=== PATIENT | female | born 1980 | race Caucasian/White ===

== ENCOUNTER 2021-08-26 11:31 | Emergency (ER) | payer MEDICAID ==
[~2021-08-26] VITALS: Ht 160 cm; Wt 74.0 kg
[~2021-08-26 11:31] MED LIST: ASP81CT PO; OXYC-12 PO
--- NOTE | 2021-08-26 11:58 | ED Lower Extremity ---
General Chief Complaint: Lower Extremity Stated Complaint: L LEG SWOLLEN Source: patient Exam Limitations: no limitations History of Present Illness Date Seen by Provider: Aug 26, 2021 Time Seen by Provider: 11:54 Initial Comments To ER with left leg swelling. She states this began after she injured it by twisting it in the groin about 2 weeks ago. She then had some redness in her lower extremity thought to be cellulitis so she was started on Bactrim. She had an ultrasound today showing extensive DVT in the left lower extremity. This was done outpatient at the [facility] in [place]. They are faxing that report to us currently. She does smoke cigarettes. She is not on any oral estrogens. No history of DVT. No recent surgery or prolonged immobilization. Denies any chest pain or shortness of breath. She states that she does feel anxious because she was told she would have to be admitted to the hospital for a couple of days for this. Onset: just prior to arrival Severity: moderate Pain/Injury Location: right leg Method of Injury: unknown Modifying Factors: Worse With Movement Allergies and Home Medications Allergies Coded Allergies: No Known Drug Allergies (Unverified , 12/30/12) Patient Home Medication List Home Medication List Reviewed: Yes Apixaban (Eliquis) 5 Mg Tablet, 5 MG PO BID Prescribed by: LOUISA KHANNA on 08/26/21 1251 Hydrocodone/Acetaminophen (Hydrocodone-Acetamin 5-325 mg) 1 Each Tablet, 1 TAB PO Q4H PRN for PAIN-MODERATE (5-7) Prescribed by: LOUISA KHANNA on 08/26/21 1251 Oxycodone Hcl/Acetaminophen (Percocet 5-325 Mg Tablet) 1 Each Tablet, 1-2 EACH PO Q4H PRN, (Reported) Entered as Reported by: DONTRELL QIU on 12/30/12 1153 Review of Systems Constitutional: see HPI; No chills, No fever EENTM: see HPI Respiratory: see HPI; No cough, No dyspnea on exertion, No short of breath Cardiovascular: see HPI; No chest pain Genitourinary: no symptoms reported Musculoskeletal: no symptoms reported Skin: no symptoms reported Psychiatric/Neurological: No Symptoms Reported Past Begwsky-Qvqcll-Oczafw Hx Patient Social History Tobacco Use?: Yes Tobacco type used: Cigarettes Smoking Status: Current Everyday Smoker Use of E-Cig and/or Vaping dev: No Substance use?: Yes Substance type: Marijuana Alcohol Use?: No Immunizations Up To Date Tetanus Booster (TDap): Less than 5yrs Influenza Vaccine Up-to-Date: Yes; Up-to-Date First/Initial COVID19 Vaccinat: NONE Second COVID19 Vaccination Kei: NONE Third COVID19 Vaccination Date: NONE COVID19 Vaccine Cardiopulmonary Specialist: NONE Past Medical History Surgery/Hospitalization HX: SX: T&A, PARTIAL HYSTERECTOMY, BACK SX, RIGHT SHOULDER SX Asthma Reproductive Disorders: Yes (PELVIC PAIN, OVARIAN CYST) Polyps Anxiety, Depression Physical Exam Vital Signs Vital Signs - First Documented 08/26/21 11:40 Temp 36.7 Pulse 115 Resp 22 B/P (MAP) 128/98 (108) Pulse Ox 98 O2 Delivery Room Air Capillary Refill : Height, Weight, BMI Height: '" Weight: lbs. oz. kg; BMI Method: General Appearance: WD/WN, no apparent distress, other (Oxygen 99% on room air) HEENT: PERRL/EOMI, normal ENT inspection Neck: non-tender, full range of motion Cardiovascular: no murmur, tachycardia (Rate of 101) Respiratory: no respiratory distress, no accessory muscle use Gastrointestinal: normal bowel sounds, non tender Hips: bilateral hip non-tender, bilateral hip normal inspection, bilateral hip normal range of motion Legs: left leg pain, left leg soft tissue tenderness, left leg swelling Knees: bilateral knee non-tender, bilateral knee normal inspection, bilateral knee normal range of motion Ankles: bilateral ankle non-tender, bilateral ankle normal inspection, bilateral ankle normal range of motion Feet: bilateral foot non-tender, bilateral foot normal inspection, bilateral foot normal range of motion Neurologic/Psychiatric: alert, normal mood/affect, oriented x 3 Skin: normal color, warm/dry Progress/Results/Core Measures Results/Orders Lab Results Laboratory Tests Test 08/26/21 11:57 Range/Units White Blood Count 15.0 H 4.3-11.0 10^3/uL Red Blood Count 3.59 L 3.80-5.11 10^6/uL Hemoglobin 10.1 L 11.5-16.0 g/dL Hematocrit 31 L 35-52 % Mean Corpuscular Volume 87 80-99 fL Mean Corpuscular Hemoglobin 28 25-34 pg Mean Corpuscular Hemoglobin Concent 32 32-36 g/dL Red Cell Distribution Width 17.5 H 10.0-14.5 % Platelet Count 670 H 130-400 10^3/uL Mean Platelet Volume 8.8 L 9.0-12.2 fL Immature Granulocyte % (Auto) 1 % Neutrophils (%) (Auto) 81 H 42-75 % Lymphocytes (%) (Auto) 10 L 12-44 % Monocytes (%) (Auto) 6 0-12 % Eosinophils (%) (Auto) 1 0-10 % Basophils (%) (Auto) 1 0-10 % Neutrophils # (Auto) 12.1 H 1.8-7.8 10^3/uL Lymphocytes # (Auto) 1.5 1.0-4.0 10^3/uL Monocytes # (Auto) 1.0 0.0-1.0 10^3/uL Eosinophils # (Auto) 0.2 0.0-0.3 10^3/uL Basophils # (Auto) 0.1 0.0-0.1 10^3/uL Immature Granulocyte # (Auto) 0.1 0.0-0.1 10^3/uL Neutrophils % (Manual) 78 % Lymphocytes % (Manual) 12 % Monocytes % (Manual) 6 % Eosinophils % (Manual) 4 % Blood Morphology Comment NORMAL Prothrombin Time 13.7 12.2-14.7 SEC INR Comment 1.0 0.8-1.4 Activated Partial Thromboplast Time 28 24-35 SEC Sodium Level 134 L 135-145 MMOL/L Potassium Level 3.8 3.6-5.0 MMOL/L Chloride Level 105 98-107 MMOL/L Carbon Dioxide Level 16 L 21-32 MMOL/L Anion Gap 13 5-14 MMOL/L Blood Urea Nitrogen 11 7-18 MG/DL Creatinine 0.98 0.60-1.30 MG/DL Estimat Glomerular Filtration Rate 63 BUN/Creatinine Ratio 11 Glucose Level 126 H 70-105 MG/DL Calcium Level 9.0 8.5-10.1 MG/DL Corrected Calcium 9.2 8.5-10.1 MG/DL Total Bilirubin 0.3 0.1-1.0 MG/DL Aspartate Amino Transf (AST/SGOT) 14 5-34 U/L Alanine Aminotransferase (ALT/SGPT) 15 0-55 U/L Alkaline Phosphatase 87 40-136 U/L Total Protein 7.9 6.4-8.2 GM/DL Albumin 3.7 3.2-4.5 GM/DL Serum Test, Qualitative NEGATIVE NEGATIVE My Orders Orders - LOUISA KHANNA APRN Cbc With Automated Diff (08/26/21 11:50) Comprehensive Metabolic Panel (08/26/21 11:50) Hcg,Qualitative Serum (08/26/21 11:50) Protime With Inr (08/26/21 11:50) Partial Thromboplastin Time (08/26/21 11:50) Manual Differential (08/26/21 11:57) Hydrocodone/Apap 5/325 Tablet (Lortab 5 (08/26/21 12:30) Apixaban Tablet (Eliquis Tablet) (08/26/21 13:00) Medications Given in ED Current Medications Medications Dose Ordered Sig/Cindy Route Start Time Stop Time Status Last Admin Dose Admin Acetaminophen/ Hydrocodone Bitart 1 ea ONCE ONCE PO 08/26/21 12:30 08/26/21 12:31 DC 08/26/21 12:41 1 EA Apixaban 10 mg ONCE ONCE PO 08/26/21 13:00 08/26/21 13:01 DC 08/26/21 13:05 10 MG Vital Signs/I&O 08/26/21 08/26/21 11:40 13:09 Temp 36.7 Pulse 115 85 Resp 22 20 B/P (MAP) 128/98 (108) 113/69 Pulse Ox 98 99 O2 Delivery Room Air Room Air Departure Communication (Admissions) I did verify with the nurse at [facility] that I can send a prescription in to [facility] at the [facility] for anticoagulant and they will fill it. I discussed with the patient the need to elevate her leg, return to ER for any general weakness shortness of breath dark tarry or grossly bloody stools, injuries that she may have previously ignored such as hitting her head with now need to be evaluated. She is understanding of these instructions. 1302-spoke with patient's nurse practitioner Jeanna Mart, she is aware of the impression on the ultrasound report showing a left pelvic mass possibly ovarian in nature and the need for CT. Patient has no abdominal pain this can certainly wait for outpatient but I could do it here. I will offer the patient to have this done here versus go home and have it ordered outpatient by Jeanna and whenever the patient prefers is what we will do. Either way this will be fol lowed up on as hypercoagulable state from ovarian CA very high on the differential. 1313-I discussed the ultrasound findings of extensive clot and a left pelvic mass with the patient with DISPOSAL WORKER at the bedside. I did offer her CT scan here of the abdomen to further evaluate the left pelvic mass versus following up with her nurse practitioner outpatient. She has a good relationship with her nurse practitioner and would like to follow-up next week to schedule that CT. She denies any abdominal pain. I discussed with her that this may represent a cancer of the ovary that has caused her to develop this clot and she replies "ovarian cancer does run in my family". She assures me she will follow up next week to schedule this. Impression Primary Impression: Left leg DVT Additional Impression: Pelvic mass Disposition: 01 HOME, SELF-CARE Condition: Stable Departure-Patient Inst. Decision time for Depature: 12:09 Referrals: [facility] (PCP/Family) Primary Care Physician Patient Instructions: Going Home on Blood Thinners Add. Discharge Instructions: Blood thinner as directed. Return to ER for any concerns. Medications have been sent to the [facility] across the street. Return to ER for any concerns. All discharge instructions reviewed with patient and/or family. Voiced understanding. Scripts Hydrocodone/Acetaminophen (Hydrocodone-Acetamin 5-325 mg) 1 Each Tablet 1 TAB PO Q4H PRN for PAIN-MODERATE (5-7), #10 TAB Prov: LOUISA KHANNA APRN 08/26/21 Apixaban (Eliquis) 5 Mg Tablet 5 MG PO BID for 30 Days, #74 TAB TAKE 2 TABLETS BID X 7 DAYS, THEN 1 TABLET BID Prov: LOUISA KHANNA APRN 08/26/21 Copy Copies To 1: KARO SALINAS PETER J APRN Aug 26, 2021 11:58
[2021-08-26 12:05] LABS: BASOPHILS # (AUTO) 0.1 10^3/uL (0.0-0.1); BASOPHILS % (AUTO) 1 % (0-10); EOSINOPHILS # (AUTO) 0.2 10^3/uL (0.0-0.3); EOSINOPHILS % (AUTO) 1 % (0-10); HEMATOCRIT 31 % (35-52); HEMOGLOBIN 10.1 g/dL (11.5-16.0); LYMPHOCYTES # (AUTO) 1.5 10^3/uL (1.0-4.0); LYMPHOCYTES % (AUTO) 10 % (12-44); MEAN CORPUSCULAR HEMOGLOBIN 28 pg (25-34); MEAN CORPUSCULAR HGB CONC 32 g/dL (32-36); MEAN CORPUSCULAR VOLUME 87 fL (80-99); MEAN PLATELET VOLUME 8.8 fL (9.0-12.2); MONOCYTES % (AUTO) 6 % (0-12); NEUTROPHILS # (AUTO) 12.1 10^3/uL (1.8-7.8); NEUTROPHILS % (AUTO) 81 % (42-75); PLATELET COUNT 670 10^3/uL (130-400)
[2021-08-26 12:18] LABS: PROTHROMBIN TIME PATIENT 13.7 SEC (12.2-14.7)
[2021-08-26 12:19] LABS: ALBUMIN 3.7 GM/DL (3.2-4.5); POTASSIUM 3.8 MMOL/L (3.6-5.0)
[2021-08-26 12:22] LABS: TOTAL PROTEIN 7.9 GM/DL (6.4-8.2)
[2021-08-26 12:23] LABS: BILIRUBIN,TOTAL 0.3 MG/DL (0.1-1.0)
[2021-08-26 12:25] LABS: CREATININE SERUM 0.98 MG/DL (0.60-1.30)
[2021-08-26] MEDS ORDERED: HYDROcodone/APAP 5 MG/325 MG (LORTAB) TAB PO ONE (12:30)
[2021-08-26 12:39] LABS: EOSINOPHILS % (MANUAL) 4 %; LYMPHOCYTES % (MANUAL) 12 %; MONOCYTES % (MANUAL) 6 %; NEUTROPHILS % (MANUAL) 78 %; RBC MORPH NORMAL
[2021-08-26] MEDS ORDERED: APIX5TAB PO (12:51)
[2021-08-26] MEDS ORDERED: ACHD5005 PO (12:51)
[2021-08-26] MEDS ORDERED: APIXABAN 5 MG (ELIQUIS) TABLET PO ONE (13:00)
[2021-08-26 13:09] VITALS: BP 113/69
== END 2021-08-26 13:09 | disposition home or self-care (01) ==
LOC: EDUNIT# 11:31 → ER 11:35
DX: I82.402 Acute embolism and thrombosis of unspecified deep veins of left lower extremity (principal); R19.00 Intra-abdominal and pelvic swelling, mass and lump, unspecified site; J45.909 Unspecified asthma, uncomplicated; F17.210 Nicotine dependence, cigarettes, uncomplicated; Z79.01 Long term (current) use of anticoagulants
CPT/HCPCS: 36415; 80053; 84703; 85007; 85027; 85610; 85730